=== PATIENT | female | born 1985 | race African-American/Black ===

== ENCOUNTER 2022-11-22 05:23 | Emergency (ER) | payer MEDICAID, OTHER ==
[~2022-11-22] VITALS: Ht 167.7 cm; Wt 127.0 kg
--- NOTE | 2022-11-22 05:56 | ED Back Pain ---
General Chief Complaint: Back Problems Stated Complaint: POSS UTI,BACK PAIN Nursing Triage Note: PT A&OX4; PT AMBULATES TO ROOM WITHOUT ASSISTANCE OF ER STAFF; PT ADVISES THAT SHE BEGAN HAVING SEVERE R FLANK PAIN THAT BEGAN ON YESTERDAY'S DATE; PT ADVISES THAT PAIN HAS CONTINUED THROUGHOUT THE NIGHT AND BECOME MORE PERSISTENT; PT REPORTS HISTORY OF FREQUENT UTI'S AND THAT PAIN IS SIMILAR; PT ALSO REPORTS FREQUENCY AND URGENCY WITH URINATION (FLORENCIA GONZALEZ MD) History of Present Illness Date Seen by Provider: Nov 22, 2022 Time Seen by Provider: 05:38 Initial Comments 36-year-old female with PMH of recurrent UTI, is here with complaints of right flank pain which began last night and has worsened in intensity. Patient states pain is 10/10 and is colicky in nature and nonradiating. Patient has not been drinking much water. Patient has associated polyuria. Denies fever and chills, hematuria, dysuria, nausea vomiting, chest pain palpitations (FLORENCIA GONZALEZ MD) Allergies and Home Medications Allergies Coded Allergies: No Known Drug Allergies (Unverified , 11/22/22) Patient Home Medication List Home Medication List Reviewed: Yes (FLORENCIA GONZALEZ MD) Review of Systems Constitutional: no symptoms reported EENTM: no symptoms reported Respiratory: no symptoms reported Cardiovascular: no symptoms reported Gastrointestinal: no symptoms reported Genitourinary: see HPI, frequency, pain Musculoskeletal: no symptoms reported Skin: no symptoms reported Psychiatric/Neurological: No Symptoms Reported (FLORENCIA GONZALEZ MD) Past Bccqjrm-Qmnshh-Ohdpqt Hx Patient Social History Tobacco Use?: Yes Tobacco type used: Cigarettes Smoking Status: Current Everyday Smoker Use of E-Cig and/or Vaping dev: No Substance use?: Yes Substance type: Marijuana Substance frequency: Daily Alcohol Frequency: Once in a while Pt feels they are or have been: No (FLORENCIA GONZALEZ MD) Immunizations Up To Date Influenza Vaccine Up-to-Date: No; Not Current First/Initial COVID19 Vaccinat: N/A (FLORENCIA GONZALEZ MD) Past Medical History Last Menstrual Period: Oct 25, 2022 (FLORENCIA GONZALEZ MD) Physical Exam Vital Signs Vital Signs - First Documented 11/22/22 05:30 Temp 35.0 Pulse 78 Resp 16 B/P (MAP) 124/64 (84) Pulse Ox 98 O2 Delivery Room Air (ANA LUISA MCKEON MD) Vital Signs Capillary Refill : Less Than 3 Seconds (FLORENCIA GONZALEZ MD) Height, Weight, BMI Height: '" Weight: lbs. oz. kg; 45.00 BMI Method: General Appearance: Moderate Distress, Obese HEENT: PERRL/EOMI Neck: Normal Inspection Cardiovascular: Regular Rate, Rhythm Respiratory: Chest Non Tender, Lungs Clear, Normal Breath Sounds Gastrointestinal: Normal Bowel Sounds, No Organomegaly, Soft, Tenderness (suprapubic tenderness present) Back: CVA Tenderness (R) Extremity: Normal Range of Motion Neurologic/Psychiatric: Alert, Oriented x3 Skin: Normal Color (FLORENCIA GONZALEZ MD) Progress/Results/Core Measures Results/Orders Lab Results Laboratory Tests Test 11/22/22 06:59 11/22/22 07:16 11/22/22 07:39 Range/Units Sodium Level 135 135-145 MMOL/L Potassium Level 3.8 3.6-5.0 MMOL/L Chloride Level 106 98-107 MMOL/L Carbon Dioxide Level 19 L 21-32 MMOL/L Anion Gap 10 5-14 MMOL/L Blood Urea Nitrogen 11 7-18 MG/DL Creatinine 0.89 0.60-1.30 MG/DL Estimat Glomerular Filtration Rate 86 BUN/Creatinine Ratio 12 Glucose Level 123 H 70-105 MG/DL Calcium Level 8.7 8.5-10.1 MG/DL Corrected Calcium 8.9 8.5-10.1 MG/DL Total Bilirubin 0.3 0.1-1.0 MG/DL Aspartate Amino Transf (AST/SGOT) 16 5-34 U/L Alanine Aminotransferase (ALT/SGPT) 14 0-55 U/L Alkaline Phosphatase 86 40-136 U/L Total Protein 7.4 6.4-8.2 GM/DL Albumin 3.8 3.2-4.5 GM/DL Urine Color YELLOW Urine Clarity CLEAR Urine pH 6.0 5-9 Urine Specific [place] >=1.030 1.016-1.022 Urine Protein TRACE H NEGATIVE Urine Glucose (UA) NEGATIVE NEGATIVE Urine Ketones NEGATIVE NEGATIVE Urine Nitrite NEGATIVE NEGATIVE Urine Bilirubin NEGATIVE NEGATIVE Urine Urobilinogen 0.2 < = 1.0 MG/DL Urine Leukocyte Esterase NEGATIVE NEGATIVE Urine RBC (Auto) 3+ H NEGATIVE Urine RBC 25-50 H /HPF Urine WBC 2-5 /HPF Urine Squamous Epithelial Cells 5-10 /HPF Urine Crystals NONE /LPF Urine Bacteria NEGATIVE /HPF Urine Casts NONE /LPF Urine Mucus SMALL H /LPF Urine Culture Indicated NO Urine Test NEGATIVE NEGATIVE Urine Opiates Screen POSITIVE H NEGATIVE Urine Oxycodone Screen NEGATIVE NEGATIVE Urine Methadone Screen NEGATIVE NEGATIVE Urine Propoxyphene Screen NEGATIVE NEGATIVE Urine Barbiturates Screen NEGATIVE NEGATIVE Ur Tricyclic Antidepressants Screen NEGATIVE NEGATIVE Urine Phencyclidine Screen NEGATIVE NEGATIVE Urine Amphetamines Screen POSITIVE H NEGATIVE Urine Methamphetamines Screen POSITIVE H NEGATIVE Urine Benzodiazepines Screen NEGATIVE NEGATIVE Urine Cocaine Screen NEGATIVE NEGATIVE Urine Cannabinoids Screen POSITIVE H NEGATIVE White Blood Count 15.2 H 4.3-11.0 10^3/uL Red Blood Count 4.33 3.80-5.11 10^6/uL Hemoglobin 12.5 11.5-16.0 g/dL Hematocrit 38 35-52 % Mean Corpuscular Volume 88 80-99 fL Mean Corpuscular Hemoglobin 29 25-34 pg Mean Corpuscular Hemoglobin Concent 33 32-36 g/dL Red Cell Distribution Width 15.9 H 10.0-14.5 % Platelet Count 212 130-400 10^3/uL Mean Platelet Volume 11.2 9.0-12.2 fL Immature Granulocyte % (Auto) 0 % Neutrophils (%) (Auto) 83 H 42-75 % Lymphocytes (%) (Auto) 10 L 12-44 % Monocytes (%) (Auto) 6 0-12 % Eosinophils (%) (Auto) 0 0-10 % Basophils (%) (Auto) 0 0-10 % Neutrophils # (Auto) 12.6 H 1.8-7.8 10^3/uL Lymphocytes # (Auto) 1.5 1.0-4.0 10^3/uL Monocytes # (Auto) 1.0 0.0-1.0 10^3/uL Eosinophils # (Auto) 0.1 0.0-0.3 10^3/uL Basophils # (Auto) 0.0 0.0-0.1 10^3/uL Immature Granulocyte # (Auto) 0.1 0.0-0.1 10^3/uL Neutrophils % (Manual) 81 % Lymphocytes % (Manual) 10 % Monocytes % (Manual) 8 % Eosinophils % (Manual) 1 % Basophils % (Manual) 0 % Band Neutrophils 0 % Blood Morphology Comment NORMAL (ANA LUISA MCKEON MD) My Orders Orders - ANA LUISA MCKEON MD Morphine Injection (Morphine Injection (11/22/22 06:27) Abdomen/Kub 1view (11/22/22 08:15) Ns Iv 1000 Ml (Sodium Chloride 0.9%) (11/22/22 08:15) Tamsulosin Capsule (Flomax Capsule) (11/22/22 08:15) Ondansetron Injection (Zofran Injectio (11/22/22 08:15) Hcg,Qualitative Urine (11/22/22 08:21) Morphine Injection (Morphine Injection (11/22/22 09:25) (ANA LUISA MCKEON MD) Medications Given in ED Current Medications Medications Dose Ordered Sig/Tramaine Route Start Time Stop Time Status Last Admin Dose Admin Ketorolac Tromethamine 15 mg ONCE ONCE IVP 11/22/22 06:00 11/22/22 06:01 DC 11/22/22 07:03 15 MG Ondansetron HCl 4 mg ONCE ONCE IVP 11/22/22 08:15 11/22/22 08:17 DC 11/22/22 08:48 4 MG (ANA LUISA MCKEON MD) Vital Signs/I&O 11/22/22 05:30 Temp 35.0 Pulse 78 Resp 16 B/P (MAP) 124/64 (84) Pulse Ox 98 O2 Delivery Room Air (ANA LUISA MCKEON MD) Blood Pressure Mean: 84 Progress Progress Note : Progress Note 1. RIGHT FLANK PAIN: - CT ABD WITHOUT CONTRAST: - UA/ UDS - CBC/ CMP - Toradol iv STAT/ NS IVF bolus STAT -Differential includes UTI and kidney stones -Will sign out to day physician to follow-up labs and imaging (FLORENCIA GONZALEZ MD) Progress Note : Time: 08:23 Progress Note Patient currently rating pain about a "3". Will add more fluids, flomax and zofran. Discussed options for follow up as we do not have local Urology. (ANA LUISA MCKEON MD) Diagnostic Imaging Diagonstic Imaging: CT Comments [facility]. [place], [place] NAME: [facility] REC#: [id number] PT STATUS: REG ER : 1985 PHYSICIAN: FLORENCIA GONZALEZ MD ADMIT DATE: 11/22/22/ER Draft Date of Exam:11/22/22 CT ABD/PELVIS WO(KIDNEY STONE) PROCEDURE: CT urinary tract, rule out kidney stone. TECHNIQUE: Multiple contiguous axial images were obtained through the abdomen and pelvis without the use of intravenous contrast. Auto Exposure Controls were utilized during the CT exam to meet ALARA standards for radiation dose reduction. INDICATION: Flank pain COMPARISON: None available. FINDINGS: The visualized lung bases are clear. Cholecystectomy. The unenhanced liver and spleen are unremarkable. A 6 to 7 mm calculus is noted within the distal right ureter just proximal to the right ureterovesicular junction. This is resulting in moderate right hydroureteronephrosis. Additional right-sided renal calculi are present. Nonobstructing left renal calculi. No aneurysmal dilatation of the abdominal aorta. The appendix is unremarkable. The urinary bladder is predominantly decompressed, therefore not well evaluated. The uterus and adnexal structures are unremarkable for age with small cyst noted within the left ovary. Mild colonic diverticulosis without CT evidence of diverticulitis. No significant adenopathy, free air, or free fluid within the abdomen and pelvis. Scattered osseous degenerative changes without acute osseous abnormality. Potential chronic fracturing of the right acetabulum IMPRESSION: A 6 to 7 mm calculus within the distal right ureter resulting in moderate right hydroureteronephrosis. Additional bilateral renal calculi, nonobstructing on the left. Cholecystectomy. Additional findings as above. Dictated on workstation # [id number] Dict: 11/22/22 0732 Trans: 11/22/22 0758 YAMINI [id number] Interpreted by: ANGELA KHAN MD Electronically signed by: Diagonstic Imaging: Xray Comments [facility], [place] NAME: [facility] REC#: [id number] PT STATUS: REG ER : 1985 PHYSICIAN: ANA LUISA MCKEON MD ADMIT DATE: 11/22/22/ER Draft Date of Exam:11/22/22 ABDOMEN/KUB 1VIEW INDICATION: Right-sided renal stones, flank pain. COMPARISON: CT from this same date. TECHNIQUE: Two radiographs of the abdomen dated 11/22/2022. FINDINGS: A 7 mm calcification within the right pelvis is identified, related to a distal ureterolith noted on the recent CT. Additional phleboliths are noted within the lower pelvis bilaterally. Additional calcifications are seen overlying the superior pole of the left renal shadow. Nonobstructed bowel gas pattern. No free air. Mild scattered osseous degenerative changes without acute osseous abnormality. Surgical clips within the right upper abdomen. IMPRESSION: 7 mm calculus within the distal right ureter is again noted. Left renal calculi. No evidence of bowel obstruction or free air. Dictated on workstation # [id number] Dict: 11/22/22901 Trans: 11/22/22905 [id number] Interpreted by: ANGELA KHAN MD Electronically signed by: (ANA LUISA MCKEON MD) Departure Impression Primary Impression: Kidney stone on right side Disposition: 01 HOME, SELF-CARE Condition: Improved Departure-Patient Inst. Decision time for Depature: 09:50 (ANA LUISA MCKEON MD) Referrals: [facility],LOCAL PHYSICIAN (PCP) Primary Care Physician Patient Instructions: Kidney Stones (DC) Add. Discharge Instructions: Drink lots of water to stay well-hydrated over the next several days. Strain your urine until you passed your kidney stone. If you develop a fever or worsening pain return to the emergency department for reevaluation. Both [facility] in [place] and [facility] have urologist. You need to call and make an appointment with 1 in the next week. Hydrocodone 5 mg tablets 1 every 6 hours as needed for pain. You can take 1 additional extra strength Tylenol with the hydrocodone. Be sure and take stool softeners while taking pain medication. Flomax 0.4 mg at night to help urine flow. Ondansetron/Zofran 1 every 8 hours as needed for nausea. Scripts Hydrocodone/Acetaminophen (Hydrocodone-Acetamin 5-325 mg) 5 Mg-325 Mg Tablet 1 TAB PO Q6H PRN for PAIN-MODERATE (5-7), #15 TAB Prov: ANA LUISA MCKEON MD 11/22/22 Ondansetron (Ondansetron Odt) 4 Mg Tab.rapdis 4 MG SL Q8H PRN for NAUSEA/VOMITING, #20 TAB Prov: ANA LUISA MCKEON MD 11/22/22 Tamsulosin HCl (Flomax) 0.4 Mg Cap 0.4 MG PO HS for 14 Days, #14 CAP Prov: ANA LUISA MCKEON MD 11/22/22 FLORENCIA GONZALEZ MD Nov 22, 2022 05:56 ANA LUISA MCKEON MD Nov 22, 2022 08:15
[2022-11-22] MEDS ORDERED: KETOROLAC 15 MG/ML VIAL IVP ONE (06:00)
[2022-11-22] MEDS ORDERED: NS IV 1000 ML 1,000 ML IV SCH ×2 (06:00→08:15)
[2022-11-22] MEDS ORDERED: morphine INJ 10 MG/ML 1ML (SYR OR VIAL) IM STA (06:27)
[2022-11-22 07:17] LABS: ALBUMIN 3.8 GM/DL (3.2-4.5); POTASSIUM 3.8 MMOL/L (3.6-5.0)
[2022-11-22 07:18] LABS: CALCIUM 8.7 MG/DL (8.5-10.1)
[2022-11-22 07:20] LABS: TOTAL PROTEIN 7.4 GM/DL (6.4-8.2)
[2022-11-22 07:21] LABS: BILIRUBIN,TOTAL 0.3 MG/DL (0.1-1.0)
[2022-11-22 07:23] LABS: CREATININE SERUM 0.89 MG/DL (0.60-1.30)
[2022-11-22 07:25] LABS: BILIRUBIN,URINE NEGATIVE (NEGATIVE); CLARITY,URINE CLEAR; COLOR,URINE YELLOW; GLUCOSE, URINE (UA) NEGATIVE (NEGATIVE); KETONES,URINE NEGATIVE (NEGATIVE); LEUKOCYTE ESTERASE ,URINE NEGATIVE (NEGATIVE); NITRITE,URINE NEGATIVE (NEGATIVE); PROTEIN,URINE TRACE (NEGATIVE)
[2022-11-22 07:40] LABS: AMPHETAMINE SCREEN, URINE POSITIVE (NEGATIVE); BARBITURATE SCREEN URINE NEGATIVE (NEGATIVE); BENZODIAZEPINES SCREEN URINE NEGATIVE (NEGATIVE); CANNABINOID SCREEN, URINE POSITIVE (NEGATIVE); COCAINE SCREEN URINE NEGATIVE (NEGATIVE); METHADONE STAT NEGATIVE (NEGATIVE); OPIATE SCREEN URINE POSITIVE (NEGATIVE); OXYCODONE STAT NEGATIVE (NEGATIVE); PROPOXYPHENE STAT NEGATIVE (NEGATIVE); TRICYCLIC ANTIDEPRESSANTS SCRE NEGATIVE (NEGATIVE)
[2022-11-22 07:50] LABS: RBC,URINE 25-50 /HPF
[2022-11-22 07:51] LABS: BACTERIA,URINE NEGATIVE /HPF
[2022-11-22 07:51] LABS: BASOPHILS % (AUTO) 0 % (0-10); EOSINOPHILS # (AUTO) 0.1 10^3/uL (0.0-0.3); EOSINOPHILS % (AUTO) 0 % (0-10); HEMATOCRIT 38 % (35-52); HEMOGLOBIN 12.5 g/dL (11.5-16.0); LYMPHOCYTES # (AUTO) 1.5 10^3/uL (1.0-4.0); LYMPHOCYTES % (AUTO) 10 % (12-44); MEAN CORPUSCULAR HEMOGLOBIN 29 pg (25-34); MEAN CORPUSCULAR HGB CONC 33 g/dL (32-36); MEAN CORPUSCULAR VOLUME 88 fL (80-99); MEAN PLATELET VOLUME 11.2 fL (9.0-12.2); MONOCYTES % (AUTO) 6 % (0-12); NEUTROPHILS # (AUTO) 12.6 10^3/uL (1.8-7.8); NEUTROPHILS % (AUTO) 83 % (42-75); PLATELET COUNT 212 10^3/uL (130-400); WHITE BLOOD COUNT 15.2 10^3/uL (4.3-11.0)
--- NOTE | 2022-11-22 07:59 | Diagnostic Imaging Report ---
PROCEDURE: CT urinary tract, rule out kidney stone. TECHNIQUE: Multiple contiguous axial images were obtained through the abdomen and pelvis without the use of intravenous contrast. Auto Exposure Controls were utilized during the CT exam to meet ALARA standards for radiation dose reduction. INDICATION: Flank pain COMPARISON: None available. FINDINGS: The visualized lung bases are clear. Cholecystectomy. The unenhanced liver and spleen are unremarkable. A 6 to 7 mm calculus is noted within the distal right ureter just proximal to the right ureterovesicular junction. This is resulting in moderate right hydroureteronephrosis. Additional right-sided renal calculi are present. Nonobstructing left renal calculi. No aneurysmal dilatation of the abdominal aorta. The appendix is unremarkable. The urinary bladder is predominantly decompressed, therefore not well evaluated. The uterus and adnexal structures are unremarkable for age with small cyst noted within the left ovary. Mild colonic diverticulosis without CT evidence of diverticulitis. No significant adenopathy, free air, or free fluid within the abdomen and pelvis. Scattered osseous degenerative changes without acute osseous abnormality. Potential chronic fracturing of the right acetabulum IMPRESSION: A 6 to 7 mm calculus within the distal right ureter resulting in moderate right hydroureteronephrosis. Additional bilateral renal calculi, nonobstructing on the left. Cholecystectomy. Additional findings as above. Dictated by: Dictated on workstation # [id number]
[2022-11-22 08:14] LABS: BAND NEUTROPHILS 0 %; BASOPHILS % (MANUAL) 0 %; EOSINOPHILS % (MANUAL) 1 %; LYMPHOCYTES % (MANUAL) 10 %; MONOCYTES % (MANUAL) 8 %; NEUTROPHILS % (MANUAL) 81 %; RBC MORPH NORMAL
[2022-11-22] MEDS ORDERED: TAMSULOSIN 0.4 MG (FLOMAX) CAP PO STA (08:15)
[2022-11-22] MEDS ORDERED: ONDANSETRON 4 MG/2 ML (SDV) Z0FRAN IVP ONE (08:15)
--- NOTE | 2022-11-22 09:06 | Diagnostic Imaging Report ---
INDICATION: Right-sided renal stones, flank pain. COMPARISON: CT from this same date. TECHNIQUE: Two radiographs of the abdomen dated 11/22/2022. FINDINGS: A 7 mm calcification within the right pelvis is identified, related to a distal ureterolith noted on the recent CT. Additional phleboliths are noted within the lower pelvis bilaterally. Additional calcifications are seen overlying the superior pole of the left renal shadow. Nonobstructed bowel gas pattern. No free air. Mild scattered osseous degenerative changes without acute osseous abnormality. Surgical clips within the right upper abdomen. IMPRESSION: 7 mm calculus within the distal right ureter is again noted. Left renal calculi. No evidence of bowel obstruction or free air. Dictated by: Dictated on workstation # [id number]
[2022-11-22] MEDS ORDERED: morphine INJ 10 MG/ML 1ML (SYR OR VIAL) IVP STA (09:25)
[2022-11-22] MEDS ORDERED: ACHD5005 PO (09:58)
[2022-11-22] MEDS ORDERED: TMSL.4C PO (09:58)
[2022-11-22] MEDS ORDERED: ONDA4TAB11 SL (09:58)
[2022-11-22 10:32] VITALS: BP 124/72
== END 2022-11-22 10:32 | disposition home or self-care (01) ==
LOC: ER 05:28
DX: N20.0 Calculus of kidney (principal); E66.9 Obesity, unspecified; F17.210 Nicotine dependence, cigarettes, uncomplicated; Z68.42 Body mass index [BMI] 45.0-49.9, adult; Z28.310 Unvaccinated for COVID-19
CPT/HCPCS: 36415; 74018; 74176; 80053; 80306; 81000; 84703; 85007; 85027

== ENCOUNTER 2022-12-14 06:14 | Emergency (ER) | payer MEDICAID ==
[~2022-12-14 06:14] MED LIST: ACHD5005 PO; ONDA4TAB11 SL; TMSL.4C PO
[2022-12-14] MEDS ORDERED: NS IV 1000 ML 1,000 ML IV STA (06:41)
--- NOTE | 2022-12-14 06:44 | ED Abdominal Pain ---
General Chief Complaint: Abdominal/GI Problems Stated Complaint: RT SIDE PX,SOB Source of Information: Patient Exam Limitations: No Limitations History of Present Illness Date Seen by Provider: December 14, 2022 Time Seen by Provider: 06:32 Initial Comments Patient is a 36-year-old female who presents to the emergency room with a chief complaint of worsening right flank pain. Patient was seen in the emergency room approximately a month ago diagnosed with a kidney stone on the right. Patient states that she did not follow-up after this diagnosis. She ran out of her prescribed pain medications yesterday. She denies hematuria. No dysuria. She has been nauseous. No fevers or chills. She has taken [id number] "pain reliever" without any relief of symptoms. Nothing makes the pain any better, leaning forward laying down makes it feel a little bit better. She states she had a last menstrual period approximately a month ago. She feels short of breath with the pain. Timing/Duration: 1-2 Days Severity/Quality: Severe ("8") Location: RLQ, Flank (right) Radiation: Back Activities at Onset: None Modifying Factors: Improves With Other (leaning forward seems to help the pain) Associated Symptoms: Back Pain, Nausea/Vomiting Allergies and Home Medications Allergies Coded Allergies: No Known Drug Allergies (Unverified , 11/22/22) Patient Home Medication List Home Medication List Reviewed: Yes Hydrocodone/Acetaminophen (Hydrocodone-Acetamin 5-325 mg) 5 Mg-325 Mg Tablet, 1 TAB PO Q6H PRN for PAIN-MODERATE (5-7) Prescribed by: ANA LUISA MCKEON on 11/22/22 09 Ondansetron (Ondansetron Odt) 4 Mg Tab.rapdis, 4 MG SL Q8H PRN for NAUSEA/VOMITING Prescribed by: ANA LUISA MCKEON on 11/22/22 0958 Ondansetron (Ondansetron Odt) 4 Mg Tab.rapdis, 4 MG SL Q8H PRN for NAUSEA/VOMITING Prescribed by: ANA LUISA MCKEON on 12/14/22 0909 Oxycodone HCl/Acetaminophen (Percocet 5-325 mg Tablet) 5 Mg-325 Mg Tablet, 1 TAB PO Q6H PRN for PAIN-MODERATE Prescribed by: ANA LUISA MCKEON on 12/14/22 0910 Tamsulosin HCl (Flomax) 0.4 Mg Cap, 0.4 MG PO HS Prescribed by: ANA LUISA MCKEON on 11/22/22 0958 Tamsulosin HCl (Flomax) 0.4 Mg Cap, 0.4 MG PO HS Prescribed by: ANA LUISA MCKEON on 12/14/22 0909 Review of Systems Review of Systems Constitutional: see HPI EENTM: No Symptoms Reported Respiratory: Shortness of Air (due to pain) Cardiovascular: No Symptoms Reported Gastrointestinal: Abdominal Pain, Constipated (2 days) Genitourinary: Frequency Musculoskeletal: back pain (right) Skin: no symptoms reported Psychiatric/Neurological: No Symptoms Reported Past Mqsqnxp-Jzbhxw-Dkannd Hx Patient Social History Tobacco Use?: Yes Tobacco type used: Cigarettes Smoking Status: Current Everyday Smoker Substance use?: No Alcohol Use?: No Immunizations Up To Date First/Initial COVID19 Vaccinat: N/A Second COVID19 Vaccination Etienne: N/A Third COVID19 Vaccination Date: N/A Physical Exam Vital Signs Vital Signs - First Documented 12/14/22 06:38 Temp 36.5 Pulse 89 Resp 16 B/P (MAP) 121/90 (100) Pulse Ox 100 O2 Delivery Room Air Capillary Refill : Height/Weight/BMI Height: '" Weight: lbs. oz. kg; 45.00 BMI Method: General Appearance: WD/WN, moderate distress HEENT: PERRL/EOMI Respiratory: lungs clear, normal breath sounds, no respiratory distress, no accessory muscle use Cardiovascular: regular rate, rhythm Gastrointestinal: soft, tenderness (right flank, suprapubic area) Extremities: normal range of motion, non-tender, normal inspection, no pedal edema Back: CVA tenderness (R) Neurologic/Psychiatric: alert, normal mood/affect, oriented x 3 Skin: normal color, warm/dry Progress/Results/Core Measures Results/Orders Lab Results Laboratory Tests Test 12/14/22 06:53 12/14/22 07:32 Range/Units White Blood Count 10.0 4.3-11.0 10^3/uL Red Blood Count 4.14 3.80-5.11 10^6/uL Hemoglobin 11.9 11.5-16.0 g/dL Hematocrit 37 35-52 % Mean Corpuscular Volume 88 80-99 fL Mean Corpuscular Hemoglobin 29 25-34 pg Mean Corpuscular Hemoglobin Concent 33 32-36 g/dL Red Cell Distribution Width 15.1 H 10.0-14.5 % Platelet Count 223 130-400 10^3/uL Mean Platelet Volume 10.8 9.0-12.2 fL Immature Granulocyte % (Auto) 0 % Neutrophils (%) (Auto) 63 42-75 % Lymphocytes (%) (Auto) 20 12-44 % Monocytes (%) (Auto) 14 H 0-12 % Eosinophils (%) (Auto) 2 0-10 % Basophils (%) (Auto) 0 0-10 % Neutrophils # (Auto) 6.3 1.8-7.8 10^3/uL Lymphocytes # (Auto) 2.0 1.0-4.0 10^3/uL Monocytes # (Auto) 1.4 H 0.0-1.0 10^3/uL Eosinophils # (Auto) 0.2 0.0-0.3 10^3/uL Basophils # (Auto) 0.0 0.0-0.1 10^3/uL Immature Granulocyte # (Auto) 0.0 0.0-0.1 10^3/uL Sodium Level 138 135-145 MMOL/L Potassium Level 3.5 L 3.6-5.0 MMOL/L Chloride Level 105 98-107 MMOL/L Carbon Dioxide Level 24 21-32 MMOL/L Anion Gap 9 5-14 MMOL/L Blood Urea Nitrogen 8 7-18 MG/DL Creatinine 0.89 0.60-1.30 MG/DL Estimat Glomerular Filtration Rate 86 BUN/Creatinine Ratio 9 Glucose Level 106 H 70-105 MG/DL Calcium Level 8.9 8.5-10.1 MG/DL Urine Color YELLOW Urine Clarity CLOUDY Urine pH 6.5 5-9 Urine Specific Alpha 1.015 L 1.016-1.022 Urine Protein TRACE H NEGATIVE Urine Glucose (UA) NEGATIVE NEGATIVE Urine Ketones NEGATIVE NEGATIVE Urine Nitrite NEGATIVE NEGATIVE Urine Bilirubin NEGATIVE NEGATIVE Urine Urobilinogen 0.2 < = 1.0 MG/DL Urine Leukocyte Esterase TRACE H NEGATIVE Urine RBC (Auto) 3+ H NEGATIVE Urine RBC 50-100 H /HPF Urine WBC 2-5 /HPF Urine Squamous Epithelial Cells 2-5 /HPF Urine Crystals PRESENT H /LPF Urine Calcium Oxalate Crystals FEW H /LPF Urine Amorphous Sediment LARGE RAIMUNDO URATES H /LPF Urine Bacteria FEW H /HPF Urine Casts NONE /LPF Urine Mucus SMALL H /LPF Urine Culture Indicated YES My Orders Orders - ANA LUISA MCKEON MD Ed Iv/Invasive Line Start (12/14/22 06:41) Cbc With Automated Diff (12/14/22 06:41) Basic Metabolic Panel (12/14/22 06:41) Ua Culture If Indicated (12/14/22 06:41) Urine Bedside (12/14/22 06:41) Ketorolac Injection (Toradol Injection) (12/14/22 06:45) Ondansetron Injection (Zofran Injectio (12/14/22 06:45) Ns Iv 1000 Ml (Sodium Chloride 0.9%) (12/14/22 06:41) Abdomen/Kub 1view (12/14/22 06:47) Urine Culture (12/14/22 07:32) Morphine Injection (Morphine Injection (12/14/22 07:56) Medications Given in ED Current Medications Medications Dose Ordered Sig/Tramaine Route Start Time Stop Time Status Last Admin Dose Admin Ketorolac Tromethamine 15 mg ONCE ONCE IVP 12/14/22 06:45 12/14/22 06:46 DC 12/14/22 06:54 15 MG Ondansetron HCl 4 mg ONCE ONCE IVP 12/14/22 06:45 12/14/22 06:46 DC 12/14/22 06:54 4 MG Vital Signs/I&O 12/14/22 06:38 Temp 36.5 Pulse 89 Resp 16 B/P (MAP) 121/90 (100) Pulse Ox 100 O2 Delivery Room Air Progress Progress Note #1: Time: 09:03 Progress Note Patient seen and evaluated by me. Evaluation today includes physical exam, CBC, basic metabolic panel, urine test, UA, KUB. Pertinent physical exam findings well-developed well-nourished obese female moderate distress due to right flank pain. Patient's heart is regular, lungs are clear. Abdomen is soft, tenderness in the right flank as well as the suprapubic area. No involuntary guarding or rebound. No skin rashes or lesions. Vital signs are stable. Differential diagnosis based on history and physical exam, kidney stone, pyelonephritis. Labs and imaging reviewed by me. CBC is normal, chemistry shows a potassium of 3.5, BUN and creatinine of 8 and 0.89. Glucose of 106. Urinalysis shows 50-100 red blood cells per high-powered field, 2-5 white blood cells, 2-5 squamous epithelial cells. Few bacteria. Negative nitrite. KUB interpreted by me shows what appears to be a stone low in the right pelvis consistent with prior x-ray read by radiology that is consistent as well with her CT. Prior CT showed 6 to 7 mm stone at the right ureterovesicular junction. Patient is treated in the emergency department with nausea medication, Zofran IV fluids, Toradol 15 mg and 4 mg of morphine. Anticipate once we have pain relief that we will refer her again to urology. I have looked up information for the local urologist at both [place] and [facility]. Those will be provided in her discharge instructions. Home again with Flomax, nausea medicines and pain medicine. No indication on the current work-up and evaluation for pyelonephritis/urinary tract infection. No other suspicion for focal intra- abdominal pathology. Patient is comfortable with plan of care. Discharge instructions and both verbal and written form. All questions are sought and answered Progress Note #2: Time: 09:19 Progress Note pain free at discharge Diagnostic Imaging Diagonstic Imaging: Xray Comments [facility] [place] NAME: IVAN JOSE [facility] REC#: [id number] PT STATUS: REG ER : 1985 PHYSICIAN: ANA LUISA MCKEON MD ADMIT DATE: 12/14/22/ER Draft Date of Exam:12/14/22 ABDOMEN/KUB 1VIEW INDICATION: Right nephrolithiasis COMPARISON: 11/22/2022 There is an approximately 0.5 cm calculus projecting over the upper pole of left kidney. There is also an elongated 0.7 cm calculus in the right pelvis which may reside within distal ureter. There is evidence of old injury to the right acetabulum. Surgical clips are seen in the gallbladder fossa. IMPRESSION: Findings indicate stable left upper pole nephrolithiasis and distal right ureteric stone. Dictated on workstation # [id number] Dict: 12/14/22 0758 Trans: 12/14/22 0801 [facility] [id number] Interpreted by: SALVATORE ARRIAZA MD Electronically signed by: [facility]: CT Comments [facility] [place] NAME: IVAN JOSE [facility] REC#: [id number] PT STATUS: REG ER : 1985 PHYSICIAN: FLORENCIA GONZALEZ MD ADMIT DATE: 11/22/22/ER Signed Date of Exam:11/22/22 CT ABD/PELVIS WO(KIDNEY STONE) PROCEDURE: CT urinary tract, rule out kidney stone. TECHNIQUE: Multiple contiguous axial images were obtained through the abdomen and pelvis without the use of intravenous contrast. Auto Exposure Controls were utilized during the CT exam to meet ALARA standards for radiation dose reduction. INDICATION: Flank pain COMPARISON: None available. FINDINGS: The visualized lung bases are clear. Cholecystectomy. The unenhanced liver and spleen are unremarkable. A 6 to 7 mm calculus is noted within the distal right ureter just proximal to the right ureterovesicular junction. This is resulting in moderate right hydroureteronephrosis. Additional right-sided renal calculi are present. Nonobstructing left renal calculi. No aneurysmal dilatation of the abdominal aorta. The appendix is unremarkable. The urinary bladder is predominantly decompressed, therefore not well evaluated. The uterus and adnexal structures are unremarkable for age with small cyst noted within the left ovary. Mild colonic diverticulosis without CT evidence of diverticulitis. No significant adenopathy, free air, or free fluid within the abdomen and pelvis. Scattered osseous degenerative changes without acute osseous abnormality. Potential chronic fracturing of the right acetabulum IMPRESSION: A 6 to 7 mm calculus within the distal right ureter resulting in moderate right hydroureteronephrosis. Additional bilateral renal calculi, nonobstructing on the left. Cholecystectomy. Additional findings as above. Dictated by: Dictated on workstation # [id number] Dict: 11/22/2232 Trans: 11/22/22 0853 [facility] [id number] Interpreted by: ANGELA KHAN MD Electronically signed by: ANGELA KHAN MD 11/22/22 0853 Departure Impression Primary Impression: Kidney stone on right side Disposition: 01 HOME, SELF-CARE Condition: Improved Departure-Patient Inst. Referrals: NO,LOCAL PHYSICIAN (PCP/Family) Primary Care Physician Patient Instructions: Kidney Stone, Adult ED Add. Discharge Instructions: Drink lots of fluids to stay well-hydrated. Use the ondansetron for nausea every 8 hours. Percocet pain medications 1 every 6 hours as needed for severe pain. You can take 1 extra strength Tylenol with the Percocet every 6 hours. Stool softeners every single day twice a day while you are having to take prescribed pain medications. Please take the Flomax at night every night. If you develop a fever, worsening pain, cannot hold down medications please come back to the emergency room for reevaluation. There are urologist in [place] who take care of people with kidney stones. You definitely need to follow-up with one this week. Call to make an appointment, as I believe a urologist will actually need to do a procedure to remove the kidney stone. Dr. Bryant Abebe ([facility]) Phone number [phone] [address] [facility] [address] [place] [address] [facility] urology Phone number [phone] [address] [place] [address] [facility] Ondansetron (Ondansetron Odt) 4 Mg Tab.rapdis 4 MG SL Q8H PRN for NAUSEA/VOMITING, #20 TAB Prov: ANA LUISA MCKEON MD 12/14/22 Oxycodone HCl/Acetaminophen (Percocet 5-325 mg Tablet) 5 Mg-325 Mg Tablet 1 TAB PO Q6H PRN for PAIN-MODERATE MDD 6, #20 TAB Prov: ANA LUISA MCKEON MD 12/14/22 Tamsulosin HCl (Flomax) 0.4 Mg Cap 0.4 MG PO HS, #30 CAP Prov: ANA LUISA MCKEON MD 12/14/22 ANA LUISA MCKEON MD December 14, 2022 06:44
[2022-12-14] MEDS ORDERED: KETOROLAC 15 MG/ML VIAL IVP ONE (06:45)
[2022-12-14] MEDS ORDERED: ONDANSETRON 4 MG/2 ML (SDV) Z0FRAN IVP ONE (06:45)
[2022-12-14 07:10] LABS: BASOPHILS % (AUTO) 0 % (0-10); EOSINOPHILS # (AUTO) 0.2 10^3/uL (0.0-0.3); EOSINOPHILS % (AUTO) 2 % (0-10); HEMATOCRIT 37 % (35-52); HEMOGLOBIN 11.9 g/dL (11.5-16.0); LYMPHOCYTES % (AUTO) 20 % (12-44); MEAN CORPUSCULAR HEMOGLOBIN 29 pg (25-34); MEAN CORPUSCULAR HGB CONC 33 g/dL (32-36); MEAN CORPUSCULAR VOLUME 88 fL (80-99); MEAN PLATELET VOLUME 10.8 fL (9.0-12.2); MONOCYTES # (AUTO) 1.4 10^3/uL (0.0-1.0); MONOCYTES % (AUTO) 14 % (0-12); NEUTROPHILS # (AUTO) 6.3 10^3/uL (1.8-7.8); NEUTROPHILS % (AUTO) 63 % (42-75); PLATELET COUNT 223 10^3/uL (130-400)
[2022-12-14 07:17] LABS: POTASSIUM 3.5 MMOL/L (3.6-5.0)
[2022-12-14 07:18] LABS: CALCIUM 8.9 MG/DL (8.5-10.1)
[2022-12-14 07:22] LABS: CREATININE SERUM 0.89 MG/DL (0.60-1.30)
[2022-12-14 07:35] LABS: BILIRUBIN,URINE NEGATIVE (NEGATIVE); CLARITY,URINE CLOUDY; COLOR,URINE YELLOW; GLUCOSE, URINE (UA) NEGATIVE (NEGATIVE); KETONES,URINE NEGATIVE (NEGATIVE); LEUKOCYTE ESTERASE ,URINE TRACE (NEGATIVE); NITRITE,URINE NEGATIVE (NEGATIVE); PH,URINE 6.5 (5-9); PROTEIN,URINE TRACE (NEGATIVE)
[2022-12-14 07:44] LABS: BACTERIA,URINE FEW /HPF; RBC,URINE 50-100 /HPF
[2022-12-14 07:45] LABS: AMORPHOUS SEDIMENT,UR LARGE AMOR URATES /LPF; CALCIUM OXALATE CRYSTALS,UR FEW /LPF
[2022-12-14] MEDS ORDERED: morphine INJ 10 MG/ML 1ML (SYR OR VIAL) IVP STA (07:56)
--- NOTE | 2022-12-14 08:01 | Diagnostic Imaging Report ---
INDICATION: Right nephrolithiasis COMPARISON: 11/22/2022 There is an approximately 0.5 cm calculus projecting over the upper pole of left kidney. There is also an elongated 0.7 cm calculus in the right pelvis which may reside within distal ureter. There is evidence of old injury to the right acetabulum. Surgical clips are seen in the gallbladder fossa. IMPRESSION: Findings indicate stable left upper pole nephrolithiasis and distal right ureteric stone. Dictated by: Dictated on workstation # [id number]
[2022-12-14] MEDS ORDERED: ONDA4TAB11 SL (09:09)
[2022-12-14] MEDS ORDERED: TMSL.4C PO (09:09)
[2022-12-14] MEDS ORDERED: OXYC-199 PO (09:09)
[2022-12-14 09:29] VITALS: BP 121/90
[2022-12-14] MEDS ORDERED: oxyCODONE/APAP 5/325MG (PERCOCET 5) TABLET PO ONE (09:30)
== END 2022-12-14 09:29 | disposition home or self-care (01) ==
LOC: EDUNIT# 06:14 → ER 06:17
DX: N13.2 Hydronephrosis with renal and ureteral calculous obstruction (principal); F17.210 Nicotine dependence, cigarettes, uncomplicated
CPT/HCPCS: 36415; 74018; 80048; 81000; 84703; 85025; 87088

== ENCOUNTER 2022-12-27 15:13 | Emergency (ER) | payer MEDICAID ==
[~2022-12-27] VITALS: Ht 167 cm; Wt 127.0 kg
[~2022-12-27 15:13] MED LIST changes: +OXYC-199 PO
[2022-12-27] MEDS ORDERED: NS IV 1000 ML 1,000 ML IV STA ×2 (15:53→17:03)
--- NOTE | 2022-12-27 15:58 | ED Abdominal Pain ---
General Chief Complaint: Abdominal/GI Problems Stated Complaint: RIGHT SIDE PAIN Nursing Triage Note: PT AMB TO RM 6 PT CO OF R SIDED ABD AND BACK PAIN STARTED AGAIN THIS AM. PT WAS SEEN IN ED LAST WEEK FOR KIDNEY STONE ON SAME SIDE, PT DID NOT CONTACT UROLOGIST FOR TREATMENT. PT RATES PAIN /. Source of Information: Patient Exam Limitations: No Limitations History of Present Illness Date Seen by Provider: December 27, 2022 Time Seen by Provider: 15:56 Initial Comments Patient is a 36-year-old female with a history of right ureterolithiasis diagnosed this past November presents ED with right flank pain. Pain started this morning. Described as sharp and intermittent. Radiates to right groin. Nausea without vomiting or diarrhea. Seen here around 7 days ago for similar pain. She was scheduled follow-up with Dr. Abebe urology but has not seen him yet. She states today she has increased urine frequency, dribbling urine. She denies body aches, chills, chest pain, shortness of breath, cough fatigue or weakness. She did take a hydrocodone at home without much improvement. Patient in moderate distress on arrival. Allergies and Home Medications Allergies Coded Allergies: No Known Drug Allergies (Unverified , 11/22/22) Patient Home Medication List Home Medication List Reviewed: Yes Cephalexin (Cephalexin) 500 Mg Tablet, 500 MG PO BID Prescribed by: AMMY CHARLES on 12/27/222021 Hydrocodone/Acetaminophen (Hydrocodone-Acetamin 5-325 mg) 5 Mg-325 Mg Tablet, 1 TAB PO Q6H PRN for PAIN-MODERATE (5-7) Prescribed by: ANA LUISA MCKEON on 11/22/22 09 Hydrocodone/Acetaminophen (Hydrocodone-Acetamin 5-325 mg) 5 Mg-325 Mg Tablet, 1 TAB PO Q4H PRN for PAIN-MODERATE (5-7) Prescribed by: AMMY CHARLES on 12/27/222046 Ketorolac Tromethamine (Ketorolac Tromethamine) 10 Mg Tablet, 10 MG PO TID Prescribed by: AMMY CHARLES on 12/27/222047 Ondansetron (Ondansetron Odt) 4 Mg Tab.rapdis, 4 MG SL Q8H PRN for NAUSEA/VOMITING Prescribed by: ANA LUISA MCKEON on 11/22/22957 Ondansetron (Ondansetron Odt) 4 Mg Tab.rapdis, 4 MG SL Q8H PRN for N AUSEA/VOMITING Prescribed by: ANA LUISA MCKEON on 12/14/22908 Oxycodone HCl/Acetaminophen (Percocet 5-325 mg Tablet) 5 Mg-325 Mg Tablet, 1 TAB PO Q6H PRN for PAIN-MODERATE Prescribed by: ANA LUISA MCKEON on 12/14/22909 Tamsulosin HCl (Flomax) 0.4 Mg Cap, 0.4 MG PO HS Prescribed by: ANA LUISA MCKEON on 11/22/22957 Tamsulosin HCl (Flomax) 0.4 Mg Cap, 0.4 MG PO HS Prescribed by: ANA LUISA MCKEON on 12/14/22908 Review of Systems Review of Systems Constitutional: No chills, No diaphoresis EENTM: No Blurred Vision, No Double Vision, No Eye Pain Respiratory: Denies Cough, Denies Orthopnea Cardiovascular: Denies Chest Pain Gastrointestinal: Abdominal Pain; Denies Diarrhea; Nausea; Denies Vomiting Genitourinary: Denies Burning, Denies Discharge Musculoskeletal: back pain, joint pain Skin: No change in color, No change in hair/nails All Other Systems Reviewed Negative Unless Noted: Yes Past Vnyfdom-Wicged-Knyzbf Hx Patient Social History Tobacco Use?: Yes Tobacco type used: Cigarettes Smoking Status: Current Everyday Smoker Substance use?: Yes Substance type: Marijuana Substance frequency: Daily Alcohol Use?: Yes Alcohol Frequency: Once in a while Pt feels they are or have been: No Immunizations Up To Date First/Initial COVID19 Vaccinat: N/A Second COVID19 Vaccination Etienne: N/A Third COVID19 Vaccination Date: N/A Past Medical History Surgery/Hospitalization HX: GALLBLADDER Physical Exam Vital Signs Vital Signs - First Documented 12/27/22 12/27/22 15:43 21:35 Pulse 80 Resp 20 B/P (MAP) 126/70 (88) Pulse Ox 99 O2 Delivery Room Air Capillary Refill : Less Than 3 Seconds Height/Weight/BMI Height: '" Weight: lbs. oz. kg; 45.00 BMI Method: General Appearance: WD/WN, no apparent distress HEENT: PERRL/EOMI, normal ENT inspection, TMs normal, pharynx normal Neck: non-tender, full range of motion, supple, normal inspection Respiratory: chest non-tender, lungs clear, normal breath sounds, no respi ratory distress, no accessory muscle use Cardiovascular: regular rate, rhythm, no edema, no gallop, no JVD Gastrointestinal: normal bowel sounds, non tender, soft, no organomegaly, no pulsatile mass Back: CVA tenderness (R) Neurologic/Psychiatric: drafter (cad) electrical II-XII nml as tested, no motor/sensory deficits, alert, normal mood/affect, oriented x 3 Skin: normal color, warm/dry Progress/Results/Core Measures Results/Orders Lab Results Laboratory Tests Test 12/27/22 16:10 12/27/22 16:44 12/27/22 19:58 Range/Units White Blood Count 11.2 H 4.3-11.0 10^3/uL Red Blood Count 3.71 L 3.80-5.11 10^6/uL Hemoglobin 10.6 L 11.5-16.0 g/dL Hematocrit 33 L 35-52 % Mean Corpuscular Volume 89 80-99 fL Mean Corpuscular Hemoglobin 29 25-34 pg Mean Corpuscular Hemoglobin Concent 32 32-36 g/dL Red Cell Distribution Width 15.5 H 10.0-14.5 % Platelet Count 256 130-400 10^3/uL Mean Platelet Volume 10.8 9.0-12.2 fL Immature Granulocyte % (Auto) 0 % Neutrophils (%) (Auto) 71 42-75 % Lymphocytes (%) (Auto) 16 12-44 % Monocytes (%) (Auto) 11 0-12 % Eosinophils (%) (Auto) 2 0-10 % Basophils (%) (Auto) 0 0-10 % Neutrophils # (Auto) 8.0 H 1.8-7.8 X 10^3 Lymphocytes # (Auto) 1.8 1.0-4.0 X 10^3 Monocytes # (Auto) 1.2 H 0.0-1.0 X 10^3 Eosinophils # (Auto) 0.2 0.0-0.3 10^3/uL Basophils # (Auto) 0.0 0.0-0.1 10^3/uL Immature Granulocyte # (Auto) 0.0 0.0-0.1 10^3/uL Sodium Level 134 L 140 135-145 MMOL/L Potassium Level 5.8 H 3.2 L 3.6-5.0 MMOL/L Chloride Level 110 H 109 H 98-107 MMOL/L Carbon Dioxide Level 17 L 20 L 21-32 MMOL/L Anion Gap 7 11 5-14 MMOL/L Blood Urea Nitrogen 8 6 L 7-18 MG/DL Creatinine 0.76 0.76 0.60-1.30 MG/DL Estimat Glomerular Filtration Rate 104 104 BUN/Creatinine Ratio 11 8 Glucose Level 101 78 70-105 MG/DL Calcium Level 8.0 L 8.1 L 8.5-10.1 MG/DL Corrected Calcium 8.4 L 8.5-10.1 MG/DL Total Bilirubin 0.2 0.1-1.0 MG/DL Aspartate Amino Transf (AST/SGOT) 25 5-34 U/L Alanine Aminotransferase (ALT/SGPT) 9 0-55 U/L Alkaline Phosphatase 68 40-136 U/L Total Protein 7.4 6.4-8.2 GM/DL Albumin 3.5 3.2-4.5 GM/DL Lipase 22 8-78 U/L Urine Color ORANGE Urine Clarity SL CLOUDY Urine pH 6.5 5-9 Urine Specific Thornton 1.010 L 1.016-1.022 Urine Protein TRACE H NEGATIVE Urine Glucose (UA) NEGATIVE NEGATIVE Urine Ketones NEGATIVE NEGATIVE Urine Nitrite NEGATIVE NEGATIVE Urine Bilirubin NEGATIVE NEGATIVE Urine Urobilinogen 0.2 < = 1.0 MG/DL Urine Leukocyte Esterase TRACE H NEGATIVE Urine RBC (Auto) 3+ H NEGATIVE Urine RBC >100 H /HPF Urine WBC 2-5 /HPF Urine Crystals NONE /LPF Urine Bacteria TRACE /HPF Urine Casts NONE /LPF Urine Mucus SMALL H /LPF Urine Culture Indicated YES My Orders Orders - DEANA RODRIGUEZ Cbc With Automated Diff (12/27/22 15:53) Comprehensive Metabolic Panel (12/27/22 15:53) Lipase (12/27/22 15:53) Ua Culture If Indicated (12/27/22 15:53) Ns Iv 1000 Ml (Sodium Chloride 0.9%) (12/27/22 15:53) Ketorolac Injection (Toradol Injection) (12/27/22 16:00) Morphine Injection (Morphine Injection (12/27/22 16:00) Abdomen/Kub 1view (12/27/22 15:55) Insulin (Regular) Human (Novolin R (Per (12/27/22 17:00) D50w (Emergency) Syringe (Dextrose 50% 5 (12/27/22 17:00) Ns Iv 1000 Ml (Sodium Chloride 0.9%) (12/27/22 17:03) Urine Culture (12/27/22 16:44) Basic Metabolic Panel (12/27/22 18:21) Fentanyl Inj (Sublimaze Injection) (12/27/22 19:51) Potassium Chloride (Tablet) (K Dur Table (12/27/22 21:00) Promethazine Injection (Phenergan Injec (12/27/22 21:00) Medications Given in ED Vital Signs/I&O 12/27/22 12/27/22 15:43 21:35 Pulse 80 72 Resp 20 20 B/P (MAP) 126/70 (88) 122/76 Pulse Ox 99 99 O2 Delivery Room Air 12/28/22 00:00 Intake Total 2000 ml Balance 2000 ml Blood Pressure Mean: 88 Departure Communication (PCP) Reviewed previous ER visits, H&P, lab testing. Patient was seen here November 22 diagnosed with a 6 to 7 mm calculus within the distal right ureter resulting in moderate right hydroureteronephrosis. Patient was seen here December 14 with a abdominal x-ray that noted Findings indicate stable left upper pole nephrolithiasis and distal right ureteric stone. Patient has been taking Flomax. She does have a few doses of hydrocodone at home. She took another dose today without improvement of the pain. Patient has not been vomiting but reports nausea. Similar location of pain right lateral abdomen and flank. She states she has not followed up with urology since her original appointment. differential diagnosis, urolithiasis, nephrolithiasis, cystitis, pyelonephritis. Urinalysis was ordered which was positive for hematuria with trace leukocytes. Potential underlying infection?. CBC showed a white blood count 11.2, hemoglobin 10.6. Chemistry showed potassium 5.8 with normal kidney function. Unclear if this was secondary to hemolysis. Attempted to get second blood draw to compare but was a difficult stick. She did initially received a dose of insulin with D50. Her second blood drawl after multiple attempts with ultrasound did show potassium of 3.2. She did receive a oral dose of potassium 20 mill equivalent. Concerned that it was likely more hemolyzed. Lab stated it did not appear hemolyzed. Patient received Zofran, 2 L of fluid and Phenergan. Vomiting improved. Tolerating p.o. fluids. Abdominal x-ray Unchanged calcification projecting over the left kidney and calcifications projecting over the pelvis. Discussed with patient that she needs to follow-up with urology. I do think patient needs a lithotripsy due to the length of pain nd no improvement. She is wanting to follow-up outpatient only. She does not want to be transferred. Discussed my concern that this could potentially cause worsening kidney function and secondary infection that we will need emergent intervention. She acknowledges. Recommend recheck of her lab work with her primary care physician in the next 1 to 2 days. Pedialyte. Continue with Flomax. Pain medication as needed. We will add Toradol as she states the Toradol seems to help more. Impression Primary Impression: Ureterolithiasis Disposition: HOME, SELF-CARE Condition: Stable Departure-Patient Inst. Decision time for Depature: 20:20 Referrals: [facility],LOCAL PHYSICIAN (PCP) Primary Care Physician Patient Instructions: Kidney Stones (DC) Scripts Ketorolac Tromethamine (Ketorolac Tromethamine) 10 Mg Tablet 10 MG PO TID, #15 TAB Prov: DEANA RODRIGUEZ 12/27/22 Hydrocodone/Acetaminophen (Hydrocodone-Acetamin 5-325 mg) 5 Mg-325 Mg Tablet 1 TAB PO Q4H PRN for PAIN-MODERATE (5-7), #6 TAB Prov: DEANA RODRIGUEZ 12/27/22 Cephalexin (Cephalexin) 500 Mg Tablet 500 MG PO BID for 7 Days, #14 TAB Prov: DEANA RODRIGUEZ 12/27/22 DEANA RODRIGUEZ December 27, 2022 15:58
[2022-12-27] MEDS ORDERED: morphine INJ 10 MG/ML 1ML (SYR OR VIAL) IVP ONE (16:00)
[2022-12-27] MEDS ORDERED: KETOROLAC 30 MG/ML VIAL IVP ONE (16:00)
[2022-12-27 16:30] LABS: BASOPHILS % (AUTO) 0 % (0-10); EOSINOPHILS # (AUTO) 0.2 10^3/uL (0.0-0.3); EOSINOPHILS % (AUTO) 2 % (0-10); HEMATOCRIT 33 % (35-52); HEMOGLOBIN 10.6 g/dL (11.5-16.0); LYMPHOCYTES # (AUTO) 1.8 X 10^3 (1.0-4.0); LYMPHOCYTES % (AUTO) 16 % (12-44); MEAN CORPUSCULAR HEMOGLOBIN 29 pg (25-34); MEAN CORPUSCULAR HGB CONC 32 g/dL (32-36); MEAN CORPUSCULAR VOLUME 89 fL (80-99); MEAN PLATELET VOLUME 10.8 fL (9.0-12.2); MONOCYTES # (AUTO) 1.2 X 10^3 (0.0-1.0); MONOCYTES % (AUTO) 11 % (0-12); NEUTROPHILS % (AUTO) 71 % (42-75); PLATELET COUNT 256 10^3/uL (130-400); WHITE BLOOD COUNT 11.2 10^3/uL (4.3-11.0)
--- NOTE | 2022-12-27 16:47 | Diagnostic Imaging Report ---
EXAMINATION: Abdomen 1 view HISTORY: Right flank pain. COMPARISON: 12/14/2022. FINDINGS: There is an unchanged 5 mm calcification projecting over the left kidney. Calcifications in the pelvis are unchanged. No dilated bowel or free air. IMPRESSION: 1. Unchanged calcification projecting over the left kidney and calcifications projecting over the pelvis. Dictated by: Dictated on workstation # [id number]
[2022-12-27 16:48] LABS: ALBUMIN 3.5 GM/DL (3.2-4.5); BILIRUBIN,TOTAL 0.2 MG/DL (0.1-1.0); CREATININE SERUM 0.76 MG/DL (0.60-1.30); POTASSIUM 5.8 MMOL/L (3.6-5.0); TOTAL PROTEIN 7.4 GM/DL (6.4-8.2)
[2022-12-27 16:57] LABS: BILIRUBIN,URINE NEGATIVE (NEGATIVE); CLARITY,URINE SL CLOUDY; COLOR,URINE ORANGE; GLUCOSE, URINE (UA) NEGATIVE (NEGATIVE); KETONES,URINE NEGATIVE (NEGATIVE); LEUKOCYTE ESTERASE ,URINE TRACE (NEGATIVE); NITRITE,URINE NEGATIVE (NEGATIVE); PH,URINE 6.5 (5-9); PROTEIN,URINE TRACE (NEGATIVE)
[2022-12-27] MEDS ORDERED: DEXTROSE 50% 50 ML (IMS) SYR IV ONE (17:00)
[2022-12-27] MEDS ORDERED: inSUlin (REGULAR) HUMAN 1 UNIT/0.01 ML (CHARGE PER UNIT) IV ONE (17:00)
[2022-12-27 17:12] LABS: BACTERIA,URINE TRACE /HPF; RBC,URINE >100 /HPF
[2022-12-27] MEDS ORDERED: fentaNYL INJ 100 MCG/2 ML AMP IVP STA (19:51)
[2022-12-27] MEDS ORDERED: CEPH500T PO (20:22)
[2022-12-27 20:44] LABS: CALCIUM 8.1 MG/DL (8.5-10.1); CREATININE SERUM 0.76 MG/DL (0.60-1.30); POTASSIUM 3.2 MMOL/L (3.6-5.0)
[2022-12-27] MEDS ORDERED: ACHD5005 PO (20:47)
[2022-12-27] MEDS ORDERED: KETO10TA PO (20:48)
[2022-12-27] MEDS ORDERED: KCL 20 MEQ TAB (K-DUR) PO ONE (21:00)
[2022-12-27] MEDS ORDERED: PROMETHAZINE INJ 25 MG/ML (PHENERGAN) AMP IVP ONE (21:00)
[2022-12-27 21:35] VITALS: BP 122/76
== END 2022-12-27 21:35 | disposition home or self-care (01) ==
LOC: EDUNIT# 15:13 → ER 15:15
DX: N13.2 Hydronephrosis with renal and ureteral calculous obstruction (principal); F17.210 Nicotine dependence, cigarettes, uncomplicated; Z28.310 Unvaccinated for COVID-19
CPT/HCPCS: 36415; 74018; 80048; 80053; 81000; 83690; 85025; 87077; 87088